=== PATIENT | female | born 1950 | race African-American/Black ===

== ENCOUNTER → 2019-12-19 | Outpatient (CLI) | payer OTHER ==
[~2019-12-19] VITALS: Ht 167.6 cm; Wt 113.0 kg
[~2019-12-19] MED LIST: ALLERGY RELIEF180 MG PO; CALCIUM500 MG PO; DAILY MULTIPLE1 EACH PO; GABAPENTIN600 M1 PO; LIPITOR40 MG PO; METFORMIN HCL500 M3 PO; OMEPRAZOLE 20 M20 M1 PO; ZANAFLEX4 M1 PO; ZESTORETIC 20-1 EAC3 PO
--- NOTE | 2019-12-21 18:08 | PATH ---
[facility] [address] [place] [address] PATHOLOGY RPT PROCEDURE Name: PASCALE KATZ Room #: REG [facility] M.Andrew.#: [id number] Admission: 12/19/19 Date of : 46 Discharge: Report #: [id number] Path Case #: [id number] [facility] Accession Number: [id number] . 01 Material submitted: . rectum - POLYP AT RECTUM . 01 Clinical history: . hx of polyps . 02 Diagnosis: Large bowel "polyp at rectum", endoscopic biopsy: - Tubular adenoma; negative for high grade dysplasia and malignancy. (MLK/db; 12/21/2019) [facility] 12/21/2019 1441 Local . 02 Electronically signed: . Maurice Pozo MD, Pathologist NPI- [id number] . 01 Gross description: . The specimen is received in formalin, labeled "Walker, Pascale, polyp at rectum" and consists of 3 fragments of pink-prescott tissue measuring between 0.2 x 0.2 cm and 0.3 x 0.3 cm which are entirely submitted in A1. (SDY; 12/20/2019) [facility]U 12/20/2019 1336 Local . 02 Pathologist provided ICD-10: D12.8 . 02 CPT . 146094 Specimen Comment: A courtesy copy of this report has been sent to [phone], [phone]- Specimen Comment: [phone], Specimen Comment: Report sent to ,DR RICH / DR BASS Performed at: [facility] [address] [id number] MD Jesus Michael MD Phone: [phone] Performed at: 02 [facility] [address] [id number] MD Angel Simms MD Phone: [phone]
== END | disposition home or self-care (01) ==
LOC: GI 08:37
DX: Z12.11 Encounter for screening for malignant neoplasm of colon (principal); Z86.010 Personal history of colon polyps; D12.8 Benign neoplasm of rectum; K57.30 Diverticulosis of large intestine without perforation or abscess without bleeding; K21.9 Gastro-esophageal reflux disease without esophagitis; I10 Essential (primary) hypertension; E78.00 Pure hypercholesterolemia, unspecified; E11.9 Type 2 diabetes mellitus without complications; Z98.890 Other specified postprocedural states; Z79.899 Other long term (current) drug therapy; Z87.891 Personal history of nicotine dependence; Z90.710 Acquired absence of both cervix and uterus; Z85.3 Personal history of malignant neoplasm of breast; Z11.59 Encounter for screening for other viral diseases; Z88.2 Allergy status to sulfonamides; Z91.041 Radiographic dye allergy status; Z91.040 Latex allergy status; Z88.8 Allergy status to other drugs, medicaments and biological substances
CPT/HCPCS: 62110; 62900